=== PATIENT | female | born 1985 | race Caucasian/White ===

== ENCOUNTER → 2017-09-27 | Outpatient (CLI) | payer BC ==
[2014-10-29 15:49] VITALS: BMI 40.2
[~2017-09-27] MED LIST: CHOL500045 PO; FER325 PO; IBU800 PO; IBUP600T22 PO; LEVO175T42 PO; LEVO200T50 PO; OXYC1TAB54 PO; PER PO; PNV1TABL70 PO
[2017-09-27 09:29] LABS: LDL CHOLESTEROL 99 mg/dl
== END ==
LOC: LAB 08:27
PROVIDERS: ATTEND Internal Medicine Endocrinology, Diabetes & Metabolism
DX: E89.0 Postprocedural hypothyroidism (principal)
CPT/HCPCS: 36415; 82310; 82374; 82435; 82465; 82565; 82947; 83036; 83718; 84132; 84295; 84443; 84478; 84520

== ENCOUNTER → 2018-05-26 | Outpatient (CLI) | payer BC ==
[2014-10-29 15:49] VITALS: BMI 40.2
[~2018-05-26] MED LIST changes: +FLU60SYR36 IM
--- NOTE | 2018-05-26 10:34 | RADIOLOGY IMAGING REPORT ---
FACILITY: [facility] [place] PATIENT NAME: Kyara Hunetr : 1985 MR: [id number] V: [id number] EXAM DATE: ORDERING PHYSICIAN: MARY SCALES TECHNOLOGIST: Location: [facility] [place] Patient: Kyara Hunter : 1985 Visit/Account:[id number] Date of Sevice: 05/26/2018 CERVICAL SPINE 2 OR 3 VIEW HISTORY: Neck pain AP lateral and odontoid views the cervical spine FINDINGS: There is loss of the normal cervical lordosis with a slight kyphotic curvature centered at the C4 lev el. Vertebral bodies are well maintained with respect to height. No compression deformities or frac tures. No retrolisthesis noted. Disc spaces relatively well-maintained with small posterior spurrin g changes noted at the C3-4 through the C5-6 levels. Facet joints well aligned with no facet DJD not ed. Odontoid lateral masses well-maintained. Status post thyroidectomy changes. FINDINGS: 1. Mild DJD changes as described. Report Dictated By: Wil Carney MD at 05/26/2018 10:27 AM Report E-Signed By: Wil Carney MD at 05/26/2018 10:29 AM WSN:MARIO
== END ==
LOC: RAD 08:35
PROVIDERS: ATTEND Family Medicine
DX: M54.2 Cervicalgia (principal)
CPT/HCPCS: 72040

== ENCOUNTER 2018-06-16 16:45 | Outpatient (RCR) | payer BC ==
[2014-10-29 15:49] VITALS: BMI 40.2
--- NOTE | 2018-06-12 17:58 | PT INITIAL EVALUATION ---
MEDICAL DIAGNOSIS: neck pain TREATMENT DIAGNOSIS: same DATE OF ONSET: 05/13/18 SUBJECTIVE: Kyara Hunter presents to physical therapy with complaints of neck pain with it radiating to her mid shoulder blade that started approximately one month ago. She reports that the pain has been getting better at times and worse at times. She reports that she thought that the pain was almost gone and then it came back with increased neck pain with decreased cervical AROM in all directions as a result, which resulted to a visit to see Gris Choudhary DO. She reports that she was placed on medications that seem to make the pain feel much better. She reports that she does not have any pain today, but does have some range of motion restrictions. She reports that she has tried massage, hot packs at night, and stretching and the success has not been extremely successful. 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 ROM: Cervical AROM: protrusion, retraction, extension, lateral flexion R, and R rotation: NIL with normal end feels. Cervical AORM: flexion, lateral flexion L, L rotation: minimal restriction with painful end feels. Palpation: TTP: C6-7 central. Sensation: Normal intact: C2-T1 B Special Tests: Repeated retraction: stretch during symptom and better following the test with increased AROM. Repeated RET with extension: stretch during symptoms and better following the test with increased AROM and abolished end feel pain in rotation, flexion, and L rotation. Mobility: Independent Gait: Normal gait mechanics demonstrated ASSESSMENT: Kyara will benefit from skilled physical therapy addressing the listed impairments to improve function and QOL. Her initial classification is posterior derangement that increased cervical AROM and normalized end feels in all directions with extension based principles. Short Term Goals 1 week: Pt will demonstrate centralized neck pain to improve function and QOL. 2 weeks: Pt will demonstrate abolished neck pain to improve function and QOL. 4 weeks: Pt will demonstrate abolished neck pain and return to prior level of function to improve function and QOL. Patient's Goals get rid of neck pain PLAN: Patient to be seen for Manual Therapy/STM/MET Strengthening/condition Range of Motion Spinal Stabilization Work Hardening/Cond Stretching Neuromuscular Re-ed Closed Chain Program Posture/Body mechanics Home Exercise Program Therapeutic Activities 2x/Week for 4 Weeks If you have any questions, comments, or concerns about this report or plan, please contact me at . Thank you, Gary Bundy, PT, DPT COLLIND
--- NOTE | 2018-06-16 17:26 | PT PLAN OF CARE ---
Physician: Gris Choudhary DO Patient is being seen: examination + 1 treatment Therapist: Gary Bundy, PT, DPT Medical Diagnosis: neck pain Treatment Diagnosis: same Date of Onset: 05/13/18 Date of Initial Evaluation: 06/12/18 Date patient was last seen: 06/16/18 Number of treatments: 2 Number of cancellations/No shows: 0 INTERVENTIONS: Manual Therapy/STM/MET Strengthening/condition Range of Motion Spinal Stabilization Work Hardening/Cond Stretching Neuromuscular Re-ed Closed Chain Program Posture/Body mechanics Home Exercise Program Therapeutic Activities GOALS: 1 week: Pt will demonstrate centralized neck pain to improve function and QOL. MET 2 weeks: Pt will demonstrate abolished neck pain to improve function and QOL. MET 4 weeks: Pt will demonstrate abolished neck pain and return to prior level of function to improve function and QOL. MET PATIENT'S GOAL: get rid of neck pain Status of Patient's Goals: MET Patient Compliance: Excellent Prognosis: Excellent Reasons for continuing therapy: This is a discharge note for Kyara Hunter. She reports that she had muscle soreness the following day after the initial examination; however, she reports that she has not felt any neck pain since the initial examination. Furthermore, she states that she has been doing her specific exercise with good results. She confirmed our classification as posterior derangement that responded well to extension based principles that abolished her neck pain and also abolished her radiating neck pain. She is independent with her specific exercise. She is independent with how to prevent reoccurrences in the future. She has met all of her goals. She is 100% independent; therefore, she will be discharged from PT to [facility] [place]. Posture: She demonstrates minimal to no postural deviations; however, she has minimal forward head, minimal B rounded shoulders, and normal lordosis. ROM: Cervical AROM: protrusion, retraction, extension, lateral flexion R, and R rotation: NIL with normal end feels. Cervical AORM: flexion, lateral flexion L, L rotation: NIL with normal end feels Strength: Palpation: No longer TTP Special Tests: Repeated retraction: stretch during symptom and better following the test with increased AROM. Repeated RET with extension: stretch during symptoms and better following the test with increased AROM and abolished end feel pain in rotation, flexion, and L rotation. Mobility: Independent If you have any questions, please contact me at [phone]. Thank you, Gary Bundy, PT, DPT MTDD
== END 2018-06-16 18:00 | disposition home or self-care (01) ==
LOC: PT 16:45
PROVIDERS: ATTEND Family Medicine
DX: M54.2 Cervicalgia (principal)
CPT/HCPCS: 97161

== ENCOUNTER → 2019-01-05 | Outpatient (CLI) | payer BC ==
[2014-10-29 15:49] VITALS: BMI 40.2
[2019-01-05 11:23] LABS: LDL CHOLESTEROL 104 mg/dl
== END ==
LOC: LAB 08:22
PROVIDERS: ATTEND Family Medicine
DX: E78.5 Hyperlipidemia, unspecified (principal); E03.9 Hypothyroidism, unspecified
CPT/HCPCS: 36415; 82040; 82247; 82310; 82374; 82435; 82465; 82565; 82947; 83718; 84075; 84132; 84155; 84295; 84443; 84450; 84460; 84478; 84520